=== PATIENT | male | born 1975 | race Caucasian/White ===

== ENCOUNTER → 2020-02-22 | Outpatient (CLI) | payer OTHER ==
[~2020-02-22] MED LIST: INSU100I11; LEVO50TA; PANT20TA2 PO
[2020-02-22 08:22] LABS: ALANINE AMINOTRANSFERASE 24 U/L (12-78); ALBUMIN 3.9 g/dL (3.4-5.0); ANION GAP 4 mmol/L (5-15); CALCIUM 9.1 mg/dL (8.5-10.1); CHLORIDE 106 mmol/L (98-107); CREATININE 1.07 mg/dL (0.7-1.3)
[2020-02-22 08:23] LABS: CREATININE,URINE RANDOM 64.5 mg/dL
[2020-02-22 08:24] LABS: ALKALINE PHOSPHATASE 82 U/L (45-117); BILIRUBIN,TOTAL 0.7 mg/dL (0.2-1.0); TOTAL PROTEIN 7.9 g/dL (6.4-8.2)
== END | disposition home or self-care (01) ==
LOC: LAB 07:50
PROVIDERS: ATTEND Internal Medicine Endocrinology, Diabetes & Metabolism
DX: E03.9 Hypothyroidism, unspecified (principal); E10.9 Type 1 diabetes mellitus without complications; E29.1 Testicular hypofunction; M81.0 Age-related osteoporosis without current pathological fracture
CPT/HCPCS: 36415; 80053; 82310; 82570; 83036; 83970; 84100; 84105; 84133; 84300; 84403

== ENCOUNTER → 2020-11-20 | Outpatient (CLI) | payer OTHER ==
[2020-11-20 09:22] LABS: ALANINE AMINOTRANSFERASE 33 U/L (12-78); ALBUMIN 3.9 g/dL (3.4-5.0); ANION GAP 4 mmol/L (5-15); CALCIUM 8.9 mg/dL (8.5-10.1); CHLORIDE 109 mmol/L (98-107)
[2020-11-20 09:24] LABS: ALKALINE PHOSPHATASE 73 U/L (45-117); BILIRUBIN,TOTAL 0.6 mg/dL (0.2-1.0); TOTAL PROTEIN 7.8 g/dL (6.4-8.2)
[2020-11-20 09:33] LABS: CREATININE,URINE RANDOM 81.8 mg/dL
== END | disposition home or self-care (01) ==
LOC: LAB 08:34
PROVIDERS: ATTEND Internal Medicine Endocrinology, Diabetes & Metabolism
DX: E10.9 Type 1 diabetes mellitus without complications (principal); E03.9 Hypothyroidism, unspecified; E29.1 Testicular hypofunction; M81.0 Age-related osteoporosis without current pathological fracture
CPT/HCPCS: 36415; 80053; 82310; 82570; 83002; 83036; 84100; 84105; 84133; 84300; 84305; 84403

== ENCOUNTER 2021-01-18 07:17 | Outpatient (CLI) | payer OTHER | END 2021-01-18 23:59 | disposition home or self-care (01) | LOC: LAB 07:17 | PROVIDERS: ATTEND Internal Medicine Endocrinology, Diabetes & Metabolism | DX: E10.9 Type 1 diabetes mellitus without complications (principal); E29.1 Testicular hypofunction; E03.9 Hypothyroidism, unspecified | CPT/HCPCS: 36415; 82670; 83002; 84403 ==